=== PATIENT | male | born 1995 | race Caucasian/White ===

== ENCOUNTER 2018-07-29 13:34 | Emergency (ER) | payer SELFPAY ==
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
== END 2018-07-29 14:08 | disposition home or self-care (01) ==
LOC: JP.ED 13:34
DX: R07.2 Precordial pain (principal); V43.92XA Unspecified car occupant injured in collision with other type car in traffic accident, initial encounter
CPT/HCPCS: 99285